=== PATIENT | male | born 1990 | race Caucasian/White ===

== ENCOUNTER 2021-01-27 12:15 | Emergency (ER) | payer OTHER ==
--- NOTE | 2021-01-27 14:54 | EDM.PDOC ---
ED HPI GENERAL MEDICAL PROBLEM - General Chief Complaint: Upper Extremity Injury/Pain Stated Complaint: WRIST INJURY Time Seen by Provider: 01/27/21 14:30 Source of Information: Reports: Patient, RN Notes Reviewed History Limitations: Reports: No Limitations - History of Present Illness INITIAL COMMENTS - FREE TEXT/NARRATIVE: Patient is a 30-year-old male who presents to the ER for his right wrist and right leg injury. Patient was playing golf yesterday, when he slipped, and ended up falling onto his right leg stump and fell onto an outstretched right wrist. States that he has not been able to move the wrist much at all, due to the pain. He has some oxycodone tablets at home, that he uses for pain management and it does seem to help take the edge off the pain. He notes that he had recent bone biopsy to his right leg stump as well, as he is scheduled to get some sort of bone grafting. He noted a little bit of bruising about the area yesterday, and states a little bit tender to walk on any has not been able to wear his prosthetic leg, due to the pain. There is no obvious swelling or deformity noted. Patient denies any other sick-like symptoms, fever/chills, cough/shortness of breath, nausea/vomiting/diarrhea. Patient is denying any sort of numbness or tingling into the right wrist as well. Right Wrist Pain Score (Numeric/FACES): 5 Right Leg Pain Score (Numeric/FACES): 3 - Related Data Allergies Allergy/AdvReac Type Severity Reaction Status Date / Time No Known Allergies Allergy Verified 01/27/21 12:47 Home Meds: Home Meds Cholecalciferol (Vitamin D3) [Vitamin D] 5,000 unit PO DAILY 01/27/21 [History] oxyCODONE HCl [Roxicodone] 15 mg PO Q6H PRN #20 tablet 01/27/21 [Rx] Past Medical History Musculoskeletal History: Reports: Other (See Below) Other Musculoskeletal History: Right BKA, has prosthesis - Past Surgical History Musculoskeletal Surgical History: Reports: Amputation (R BKA with prosthesis) Review of Systems - Review of Systems Review Of Systems: Comprehensive ROS is negative, except as noted in HPI. ED EXAM, GENERAL - Physical Exam Exam: See Below Exam Limited By: No Limitations General Appearance: Alert, WD/WN, No Apparent Distress Respiratory/Chest: No Respiratory Distress, Lungs Clear, Normal Breath Sounds, No Accessory Muscle Use, Chest Non-Tender Cardiovascular: Normal Peripheral Pulses, Regular Rate, Rhythm, No Edema Peripheral Pulses: 2+: Radial (L), Radial (R) Extremities: Normal Inspection, Normal Capillary Refill, Limited Range of Motion (of right wrist d/p pain, pt has tenderness about his right lower leg stump as well.) Neurological: Alert, Oriented, Normal Cognition, No Motor/Sensory Deficits Psychiatric: Normal Affect, Normal Mood Skin Exam: Warm, Dry, Intact, Normal Color, No Rash Course - Vital Signs Last Recorded V/S: Last Vital Signs Temp 98.2 F 01/27/21 12:40 Pulse 95 01/27/21 12:40 Resp 18 01/27/21 12:40 BP 152/108 H 01/27/21 12:40 Pulse Ox 98 01/27/21 12:40 - Orders/Labs/Meds Orders: Active Orders 24 hr Category Date Time Status Tibia Fibula Rt [CR] Stat Exams 01/27/21 14:49 Ordered Wrist Comp Min 3V Rt [CR] Stat Exams 01/27/21 14:15 Taken - Re-Assessments/Exams Free Text/Narrative Re-Assessment/Exam: 01/27/21 14:54 Patient presents to the ER for a right wrist and right leg injury. Wrist x-rays were taken at time of triage, demonstrate no acute fracture or abnormalities reviewed by myself and Dr. Allred. After evaluating the patient, due to prolonged wait times in the ER I have decided to order a right tib-fib as well for evaluation of any sort of bony injury to the stump. States he has not been able to put any weight on it. 01/27/21 15:23 Patient's tib-fib x-rays have been taken, and there is an area off the end of the fibula, that is suspicious for a possible fracture, I did consult these images with Dr. Horta and he believes that this is a compression fracture nature patient will have to keep off of the prosthesis for 4 weeks. I will get him some tablets of Roxicodone for ongoing pain management as the patient states that he has gotten more relief from this in the past than Percocet. Departure - Departure Time of Disposition: 15:24 Disposition: Home, Self-Care 01 Condition: Good Clinical Impression: Pain of amputation stump of right lower extremity, Fracture of fibula alone Right wrist sprain Qualifiers: Encounter type: initial encounter Qualified Code(s): S63.501A - Unspecified sprain of right wrist, initial encounter - Discharge Information *PRESCRIPTION DRUG MONITORING PROGRAM REVIEWED*: Yes *COPY OF PRESCRIPTION DRUG MONITORING REPORT IN PATIENT TREVOR: No Prescriptions: oxyCODONE HCl [Roxicodone] 15 mg PO Q6H PRN #20 tablet PRN Reason: Pain Instructions: Pain Medicine Instructions, [id number] Referrals: PCP,Not In Area [Primary Care Provider] - Forms: ED Department Discharge Additional Instructions: You have been evaluated in the ED for your right wrist pain and right leg stump pain. Your x-ray demonstrated no acute fracture of your right wrist, but there was an area that was concerning for a compression fracture of the fibula in your right leg stump. Due to this, you should stay off of your prosthesis for about 4 weeks, and use the knee scooter that you presented to the ER with for ongoing management. Please use ice as tolerated to the affected area. You may elevate the affected area to provide further relief from swelling. You may take Tylenol 500 mg or ibuprofen 600mg q6 hrs for pain relief. Please do so until you have a tolerable level of pain with activity. Do not exceed 4000mg Tylenol, Do not exceed 3200mg ibuprofen in a 24 hour time period. You were given a prescription for a strong pain medication, Roxicodone 15 mg, please take 1 tab every 6 hours as needed for pain not relieved by Tylenol or ibuprofen alone. These medications can be addictive, so please take as few as possible to achieve adequate pain control. These meds can also be quite constipating, recommend that you increase your oral fluid intake and take a stool softener like MiraLAX while taking these medications. Your prescription was electronically sent to [facility] located near [facility], this pharmacy is only open from 12 to 4 PM on Sundays, you will need to go there during this timeframe to obtain this medication and take as prescribed. Please return to ED if your symptoms should change or worsen. Sepsis Event Note (ED) - Focused Exam Vital Signs: Vital Signs Temp Pulse Resp BP Pulse Ox 01/27/21 12:40 98.2 F 95 18 152/108 H 98 - My Orders Last 24 Hours: My Active Orders 01/27/21 14:15 Wrist Comp Min 3V Rt [CR] Stat 01/27/21 14:49 Tibia Fibula Rt [CR] Stat - Assessment/Plan Last 24 Hours: My Active Orders 01/27/21 14:15 Wrist Comp Min 3V Rt [CR] Stat 01/27/21 14:49 Tibia Fibula Rt [CR] Stat
--- NOTE | 2021-01-28 07:46 | CR ---
Right tibia and fibula: AP and lateral views of the right tibia and fibula were obtained. Comparison: No prior tibia and fibula imaging is available. Below the knee amputation is seen. Joint spaces within the knee are maintained. No joint effusion is seen. No acute fracture or other bony abnormality is identified. Impression: 1. Below the knee amputation. 2. Nothing acute is otherwise seen on 2 view right right tibia and fibula study exam. Diagnostic code #2
--- NOTE | 2021-01-28 07:46 | CR ---
Right wrist: 4 views of the right wrist were obtained. Comparison: No prior wrist imaging is available. Joint spaces are preserved. No acute fracture, dislocation or other bony abnormality is appreciated. Mild soft tissue swelling appears to be present. Impression: 1. Mild soft tissue swelling. 2. No acute bony abnormality is identified on right wrist exam. Diagnostic code #2
== END 2021-01-27 15:37 | disposition home or self-care (01) ==
LOC: EDBD 12:15 → JD.ED 12:15 → MERGE 12:15 → JD.ED 15:37
DX: S82.401A Unspecified fracture of shaft of right fibula, initial encounter for closed fracture (principal); S82.201A Unspecified fracture of shaft of right tibia, initial encounter for closed fracture; W01.0XXA Fall on same level from slipping, tripping and stumbling without subsequent striking against object, initial encounter
CPT/HCPCS: 73110-26-RT; 73110-RT; 73590-26-RT; 73590-RT; 99283; 99283-25

== ENCOUNTER 2024-02-01 19:15 | Emergency (ER) | payer OTHER ==
[2024-02-01] MEDS: Ketorolac 30 MG/ML SDV IM ONE (21:36)
== END 2024-02-01 21:45 | disposition home or self-care (01) ==
LOC: JD.ED 19:15
DX: S46.811A Strain of other muscles, fascia and tendons at shoulder and upper arm level, right arm, initial encounter (principal); E66.9 Obesity, unspecified; V49.40XA Driver injured in collision with unspecified motor vehicles in traffic accident, initial encounter; Y92.410 Unspecified street and highway as the place of occurrence of the external cause
CPT/HCPCS: 96372; 99283; J1885